=== PATIENT | female | born 1960 | race Hispanic/Latino ===

== ENCOUNTER 2020-12-28 10:14 | Outpatient (CLI) | payer OTHER | END 2020-12-28 10:15 | disposition home or self-care (01) | LOC: SPVWC 10:14 | PROVIDERS: ATTEND Family Medicine | DX: N63.12 Unspecified lump in the right breast, upper inner quadrant (principal); D05.11 Intraductal carcinoma in situ of right breast; R92.1 Mammographic calcification found on diagnostic imaging of breast; R92.8 Other abnormal and inconclusive findings on diagnostic imaging of breast; N64.89 Other specified disorders of breast; Z17.0 Estrogen receptor positive status [ER+] | CPT/HCPCS: 88305; 88341; 88342 ==

== ENCOUNTER 2021-02-09 10:24 | Day surgery (SDC) | payer OTHER ==
[2021-02-04 10:15] LABS: Hemoglobin 15.1 gm/dl (10.1-14.3); Mean Corpuscular HGB Conc 34 % (30-34); Mean Corpuscular Volume 95 fl (79-97); Platelet Count 322 K/mm3 (140-440); Red Blood Count 4.63 M/mm3 (3.65-5.03)
[~2021-02-09 10:24] MED LIST: BUPIVACAINE/PF (0.5%) 5 MG/1 ML 30 ML VIAL INFILTRATI ONE; HEPARIN 10,000 UNITS/10 ML VIAL ONE; LIDOCAINE (1%) 10 MG/1 ML VIAL 20 ML MDV ONE; LIDOCAINE MPF (2%) 20 MG/1 ML VIAL 5 ML ONE; ONDANSETRON 4 MG/2 ML INJ ONE; SODIUM CHLORIDE 0.9% 250ML 250 ML ONE; SODIUM CHLORIDE 0.9% 500 ML 500 ML ONE; SODIUM CHLORIDE P/F VIAL 10 ML 10 ML ONE; ceFAZolin/STERILE WATER 2 GM/20 ML SYRINGE IV NR; dexAMETHasone 20 MG/5 ML VIAL ONE; ePHEDrine SULFATE 50 MG/1 ML INJ ONE; fentaNYL 100 MCG/2 ML INJ ONE; propofoL 200 MG/20 ML VIAL IV ONE; rifAMPin 600 MG VIAL ONE
[2021-02-09] MEDS ORDERED: LIDOCAINE (1%) 10 MG/1 ML VIAL 20 ML MDV ONE (11:04)
--- NOTE | 2021-02-09 11:35 | Mammography Report ---
MAMMOGRAPHIC GUIDED RIGHT BREAST NEEDLE LOCALIZATION, 02/09/2021 CLINICAL INFORMATION / INDICATION: Right breast calcification/mass. COMPARISON: 12/28/2020 PROCEDURE: Risks, benefits and indications to the procedure were discussed with the patient. The patient agreed to proceed with both verbal and written consent. A timeout procedure was performed with 2 patient kaylin ntifiers. The breast was prepped with betadine in the usual sterile fashion. Approximately 5 cc of Lidocaine 1% was used for local anesthesia. Under direct digital mammographic guidance, a localization wire was p laced in satisfactory position with distal tip traversing the targeted lesion. Post-biopsy mammogram confirms satisfactory positioning of the localization wire. The wire was secured to the skin with a s terile dressing. The patient tolerated procedure without difficulty. No complications were encountered. IMPRESSION: 1. Satisfactory mammographic guided wire localization of the pleomorphic calcifications in the right breast. Signer Name: Jorge L Palomo Jr, MD Signed: 02/09/2021 11:31 AM Workstation Name: [id number]
[2021-02-09] MEDS ORDERED: MIDAZOLAM 2 MG/2 ML INJ IV NR (11:42)
[2021-02-09] MEDS ORDERED: LACTATED RINGERS 1,000 ML IV SCH (11:45)
--- NOTE | 2021-02-09 11:57 | Anesthesia Consultation ---
Anesthesia Consult and Med Hx Date of service: 02/09/21 - Airway Anesthetic Teeth Evaluation: Good, Caps (upper front) ROM Head & Neck: Adequate Mental/Hyoid Distance: Adequate Mallampati Class: Class II Intubation Access Assessment: Probably Good - Pre-Operative Health Status ASA Pre-Surgery Classification: ASA2 Proposed Anesthetic Plan: General Nerve Block: PEC - Pulmonary Hx Smoking: No Hx Sleep Apnea: No - Cardiovascular System Hx Hypertension: Yes (recent, no meds) - Central Nervous System Hx Psychiatric Problems: No - Gastrointestinal Hx Gastroesophageal Reflux Disease: No (PONV) - Other Systems Hx Alcohol Use: Yes (OCCASIONALLY) Hx Substance Use: No Hx Cancer: Yes (right breast mass)
--- NOTE | 2021-02-09 11:58 | Anesthesia Day of Surgery ---
Anesthesia Day of Surgery - Day of Surgery Patient Examined: Yes Patient H&P Reviewed: Yes Patient is NPO: Yes
[2021-02-09] MEDS ORDERED: SCOPOLAMINE TRANSDERMAL PATCH 72 HR TD NR (12:00)
[2021-02-09] MEDS ORDERED: FAMOTIDINE 20 MG/2 ML INJ IV NR (12:00)
--- NOTE | 2021-02-09 14:57 | Short Stay Summary ---
Short Stay Documentation Date of service: 02/09/21 - History H&P: obtained from office - Allergies and Medications Current Medications: Allergies No Known Allergies Allergy (Verified 02/02/21 15:50) Home Medications Medication Instructions Recorded Confirmed Last Taken Type Ibuprofen [Motrin 800 MG tab] 800 mg PO Q8HR PRN #12 tablet 02/09/21 Unknown Rx Active Medications Cefazolin Sodium (Cefazolin/Sterile Water 2 Gm/20 Ml Syringe) 2 gm IV PREOP NR Stop: 02/09/21 21:00 Famotidine (Famotidine 20 Mg/2 Ml Inj) 20 mg IV PREOP NR Stop: 02/09/21 20:00 Last Admin: 02/09/21 12:15 Dose: 20 mg Documented by: Lactated Ringer's (Lactated Ringers) 1,000 mls @ 100 mls/hr IV DIRECT ELY Last Admin: 02/09/21 12:10 Dose: 100 mls/hr Documented by: Midazolam HCl (Midazolam 2 Mg/2 Ml Inj) 2 mg IV ONCE NR Stop: 02/09/21 20:00 Last Admin: 02/09/21 12:45 Dose: 2 mg Documented by: - Brief post op/procedure progress note Date of procedure: 02/09/21 Pre-op diagnosis: Right breast cancer upper inner quadrant Post-op diagnosis: same Procedure: Right needle localization partial mastectomy of the upper inner quadrant Anesthesia: GETA Findings: Wire and calcifications present on radiograph specimen Surgeon: ORLANDO PEARSON Estimated blood loss: minimal Pathology: list Specimen disposition: to lab Condition: stable - Disposition Condition at discharge: Good Disposition: DC-01 TO HOME OR SELFCARE Short Stay Discharge Plan Activity: other (no heavy lifting) Diet: regular Wound: keep clean and dry (wear breast binder; may shower in 48 hours; no baths, pools or lakes; apply bacitracin twice daily) Follow up with: ORLANDO PEARSON MD [Staff Physician] - 7 Days Prescriptions: Ibuprofen [Motrin 800 MG tab] 800 mg PO Q8HR PRN #12 tablet PRN Reason: Pain , Severe (7-10)
--- NOTE | 2021-02-09 15:00 | Mammography Report ---
RIGHT BREAST SPECIMEN RADIOGRAPH, 02/09/2021 INDICATION: Right breast calcifications/mass. COMPARISON: Needle localization performed earlier today FINDINGS: The previously localized target lesion is present in its entirety in the submitted specimen. The localization wire is present. IMPRESSION: 1. Radiographic evidence of satisfactory excision of the target lesion. Signer Name: Jorge L Palomo Jr, MD Signed: 02/09/2021 2:55 PM Workstation Name: [id number]
--- NOTE | 2021-02-09 15:04 | Operative Report ---
Operative Report Operative Report: Operative Report: February 09, 2021 Preoperative diagnosis: Right breast cancer of the upper inner quadrant Postoperative diagnosis: Same Procedure: Right needle localization partial mastectomy of the upper inner quadrant Surgeon: Janelle San MD Stitch Bonding Machine Tender Helper: Tristen Linares MD Anesthesia: General Findings: Right wire, calcifications and clip present within radiograph specimen Complications: None EBL: Minimal Disposition: PACU in good condition Indications for operative procedure: This is a 60 year old lady with newly diagnosed right breast cancer of the upper inner quadrant, Stage 0, [id number] ER/MO positive (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 Recommendations are to proceed with breast conservation. Radiology place wire at area of cancer. She understands the role of adjuvant radiation therapy. She wished to proceed with the above procedure. Procedure in detail: The patient was taken to radiology for wire placement for localization known area of cancer. Anesthesia placed right pectoral block. Patient was then taken to the operating room. Gen. anesthesia was administered. Right breast and axilla were prepped and draped in the normal sterile operative fashion. The wire was identified around 1:00 position 3-5 cm FN. Timeout was performed. Attention was then taken towards the right breast. Ultrasound used as well for identification of area of malignancy around 1:00 position 3-5 cm FN. A periareolar breast incision was made around 1:00 position with a 15 blade knife and dissection taken down to subcutaneous tissues. First began raising of the superior flap with removal of the wire from the skin with dissection taken superior to the wire and posteriorly down to the pectoralis muscle, followed by raising of the inferior flap, medial flap and lateral flap with all flaps taken down to the pectoralis muscle and past the wire to ensure adequate margins. The breast area of concern was appropriately removed posteriorly from the pectoralis muscle with the aid of the Bovie cautery. The wire was not encountered. Specimen was marked and then sent to pathology and radiology; radiograph specimen with wire, calcifications and clip present. Breast cavity was irrigated and hemostasis was obtained. The posterior deep breast tissues were approximated and closed using interrupted 3-0 Vicryl. The subcutaneous tissues were approximated and closed using interrupted 3-0 Vicryl followed by closing of the skin with a running 4-0 Monocryl and dermabond. The patient tolerated surgery very well and she was awaken from anesthesia without any complication and transported to PACU in good condition.
--- NOTE | 2021-02-09 15:21 | Post Anesthesia Evaluation ---
- Post Anesthesia Evaluation Patient Participated: Yes Airway Patent: Yes Stable Respiratory Function: Yes Nausea/Vomiting: No Temp > 96.8F: Yes Pain Manageable: Yes Adequeate Hydration: Yes Anesthesia Complications: No Block Receding Appropriately: Yes Patient on Ventilator: No
[2021-02-09 16:37] VITALS: BP 125/79
== END 2021-02-09 16:25 | disposition home or self-care (01) ==
LOC: OR 10:24
PROVIDERS: ATTEND Surgery
DX: C50.211 Malignant neoplasm of upper-inner quadrant of right female breast (principal); R92.1 Mammographic calcification found on diagnostic imaging of breast; I10 Essential (primary) hypertension; Z79.899 Other long term (current) drug therapy; Z98.890 Other specified postprocedural states; Z72.89 Other problems related to lifestyle; Z20.822 Contact with and (suspected) exposure to COVID-19
CPT/HCPCS: 19281; 19302; 36415; 64450; 76098; 85027; 88307; 88341; 88342; A4648; J0690; J1100; J1644; J2250; J2405; J2704; J3010; J3490; J7040; J7050; J7120; U0003

== ENCOUNTER 2021-03-01 08:36 | Outpatient (CLI) | payer OTHER ==
--- NOTE | 2021-03-01 10:36 | Magnetic Resonance Report ---
MRI BREAST BILATERAL WITH AND WITHOUT CONTRAST, 03/01/2021 CLINICAL INFORMATION / INDICATION: BREAST CA C50.211. Patient has history of right breast cancer stat us post lumpectomy on 02/09/2021. TECHNIQUE: Axial T1 and T2-weighted fat sat images were obtained precontrast. Gadolinium-based contra st was injected intravenously and serial axial T1 weighted images with fat saturation were obtained. 3-D MIP projections, kinetic analysis, and subtraction imaging were utilized to evaluate. A dedicated 8-channel breast coil was used for image acquisition. COMPARISON: Prior mammograms 12/15/2020, 12/21/2020, and 12/28/2020 FINDINGS: BREAST DENSITY: There are scattered areas of fibroglandular density. BACKGROUND ENHANCEMENT: Low level background enhancement within both breasts. RIGHT BREAST: There is postlumpectomy change seen in the central to upper inner quadrant of the right breast. A thin rim of enhancement is seen surrounding the lumpectomy cavity, with no obvious bulky s uspicious enhancement identified. LEFT BREAST: No dominant mass or suspicious area of enhancement in the left breast. AXILLAE: No pathologically enlarged axillary lymph nodes. ADDITIONAL FINDINGS: Limited imaging of the thorax and upper abdomen demonstrates no focal abnormalit y. IMPRESSION: 1. Post lumpectomy change in the right breast. Enhancement surrounding the lumpectomy site is favored to represent benign postsurgical change, though recommend breast MRI in 6 months to ensure resolutio n. 2. No suspicious MRI abnormality identified in the left breast. Follow up recommendation: Short term follow up in 6 months. BI-RADS Category 3: Probably Benign. Followup in 6 months. Signer Name: Johanne Ding MD Signed: 03/01/2021 10:32 AM Workstation Name: [id number]
== END 2021-03-01 08:37 | disposition home or self-care (01) ==
LOC: SPVIMAG 08:36
PROVIDERS: ATTEND Surgery
DX: C50.211 Malignant neoplasm of upper-inner quadrant of right female breast (principal)
CPT/HCPCS: A9575; C8908; 77049

== ENCOUNTER 2021-03-16 05:49 | Day surgery (SDC) | payer OTHER ==
[2021-03-11 09:59] LABS: Hematocrit 43.9 % (30.3-42.9); Mean Corpuscular HGB Conc 34 % (30-34); Mean Corpuscular Volume 96 fl (79-97); Platelet Count 238 K/mm3 (140-440); Red Blood Count 4.59 M/mm3 (3.65-5.03); Red Cell Distribution Width 13.3 % (13.2-15.2)
[2021-03-16] MEDS ORDERED: MIDAZOLAM 2 MG/2 ML INJ IV NR (06:00)
[2021-03-16] MEDS ORDERED: ACETAMINOPHEN 500 MG TAB PO SCH (06:00)
[2021-03-16] MEDS ORDERED: SCOPOLAMINE TRANSDERMAL PATCH 72 HR TD NR (06:00)
[2021-03-16] MEDS ORDERED: LACTATED RINGERS 1,000 ML IV SCH (06:00)
[2021-03-16] MEDS ORDERED: ceFAZolin/STERILE WATER 2 GM/20 ML SYRINGE IV NR (06:00)
[2021-03-16] MEDS ORDERED: CELECOXIB 200 MG CAP PO NR (06:00)
[2021-03-16] MEDS ORDERED: GABAPENTIN 300 MG CAP PO NR (06:00)
[2021-03-16] MEDS ORDERED: ONDANSETRON 4 MG/2 ML INJ ONE (07:23)
[2021-03-16] MEDS ORDERED: propofoL 200 MG/20 ML VIAL IV ONE (07:23)
[2021-03-16] MEDS ORDERED: fentaNYL 100 MCG/2 ML INJ ONE ×2 (07:23→09:34)
[2021-03-16] MEDS ORDERED: KETOROLAC 30 MG/1 ML INJ ONE (07:23)
[2021-03-16] MEDS ORDERED: dexAMETHasone 20 MG/5 ML VIAL ONE (07:23)
[2021-03-16] MEDS ORDERED: LIDOCAINE PF 100 MG/5 ML (CARDIAC SYRINGE) IV ONE (07:23)
--- NOTE | 2021-03-16 07:25 | Anesthesia Consultation ---
Anesthesia Consult and Med Hx Date of service: 03/16/21 - Airway Anesthetic Teeth Evaluation: Good, Crowns (top incisors) ROM Head & Neck: Adequate Mental/Hyoid Distance: Adequate Mallampati Class: Class II Intubation Access Assessment: Probably Good (previous LMA 4) - Pre-Operative Health Status ASA Pre-Surgery Classification: ASA2 Proposed Anesthetic Plan: General - Pulmonary Hx Smoking: No Hx Respiratory Symptoms: No - Cardiovascular System Hx Hypertension: Yes (recent dx; no meds) Hx Heart Attack/AMI: No - Central Nervous System CVA: No - Endocrine Hx Renal Disease: No Hx Liver Disease: No Hx Insulin Dependent Diabetes: No Hx Non-Insulin Dependent Diabetes: No Hx Thyroid Disease: No - Other Systems Hx Cancer: Yes (breast ca) - Additional Comments Anesthesia Medical History Comments: Hx PONV for which scop patch was helpful with last anesthetic.
[2021-03-16] MEDS ORDERED: HYDROcodone/ACETAMINOPHEN 5-325 MG TAB PO PRN (07:26)
[2021-03-16] MEDS ORDERED: HYDROmorphone 1 MG/1 ML INJ IV PRN (07:26)
[2021-03-16] MEDS ORDERED: ONDANSETRON 4 MG/2 ML INJ IV PRN (07:26)
--- NOTE | 2021-03-16 07:26 | Anesthesia Day of Surgery ---
Anesthesia Day of Surgery - Day of Surgery Patient Examined: Yes Patient H&P Reviewed: Yes Patient is NPO: Yes
[2021-03-16] MEDS ORDERED: BACITRACIN ZINC OINT 28.4 GM TP ONE (07:39)
[2021-03-16] MEDS ORDERED: BUPIVACAINE/PF (0.25%) 2.5 MG/ML 30 ML VIAL INFILTRATI ONE (07:39)
[2021-03-16] MEDS ORDERED: LIDOCAINE (1%) 10 MG/1 ML VIAL 20 ML MDV ONE (07:39)
[2021-03-16] MEDS ORDERED: SODIUM CHLORIDE P/F VIAL 10 ML 10 ML ONE (08:12)
[2021-03-16] MEDS ORDERED: METHYLENE BLUE 50 MG/10 ML AMP ONE (08:12)
[2021-03-16] MEDS ORDERED: ePHEDrine SULFATE 50 MG/1 ML INJ ONE (08:31)
[2021-03-16] MEDS ORDERED: LACTATED RINGERS 1,000 ML ONE (09:27)
--- NOTE | 2021-03-16 09:57 | Short Stay Summary ---
Short Stay Documentation Date of service: 03/16/21 - History H&P: obtained from office - Allergies and Medications Current Medications: Allergies No Known Allergies Allergy (Verified 02/22/21 10:11) Home Medications Medication Instructions Recorded Confirmed Last Taken Type Ibuprofen [Motrin 800 MG tab] 800 mg PO Q8HR PRN #10 tablet 03/16/21 Unknown Rx Active Medications Acetaminophen (Acetaminophen 500 Mg Tab) 1,000 mg PO PREOP ELY Last Admin: 03/16/21 06:45 Dose: 1,000 mg Documented by: Hydrocodone Bitart/Acetaminophen (Hydrocodone/Acetaminophen 5-325 Mg Tab) 2 each PO ONCE PRN PRN Reason: Pain, Moderate (4-6) Stop: 03/16/21 12:00 Cefazolin Sodium (Cefazolin/Sterile Water 2 Gm/20 Ml Syringe) 2 gm IV PREOP NR Stop: 03/16/21 19:00 Celecoxib (Celecoxib 200 Mg Cap) 200 mg PO PREOP NR Stop: 03/16/21 23:01 Last Admin: 03/16/21 06:45 Dose: 200 mg Documented by: Gabapentin (Gabapentin 300 Mg Cap) 300 mg PO PREOP NR Stop: 03/16/21 23:01 Last Admin: 03/16/21 06:45 Dose: 300 mg Documented by: Hydromorphone HCl (Hydromorphone 1 Mg/1 Ml Inj) 0.5 mg IV Q10MIN PRN PRN Reason: Pain , Severe (7-10) Stop: 03/16/21 23:00 Lactated Ringer's (Lactated Ringers) 1,000 mls @ 100 mls/hr IV DIRECT ELY Stop: 03/16/21 23:59 Last Admin: 03/16/21 06:50 Dose: 100 mls/hr Documented by: Midazolam HCl (Midazolam 2 Mg/2 Ml Inj) 2 mg IV PREOP NR Stop: 03/16/21 23:00 Ondansetron HCl (Ondansetron 4 Mg/2 Ml Inj) 4 mg IV ONCE PRN PRN Reason: Nausea And Vomiting Stop: 03/16/21 12:00 Scopolamine (Scopolamine Transdermal Patch 72 Hr) 1 each TD PREOP NR Stop: 03/16/21 23:01 Last Admin: 03/16/21 06:45 Dose: 1 each Documented by: - Brief post op/procedure progress note Date of procedure: 03/16/21 Pre-op diagnosis: Right breast cancer upper inner quadrant Post-op diagnosis: same Procedure: Right axillary sentinel lymph node biopsy Anesthesia: GETA Findings: x2 SLNS Surgeon: ORLANDO PEARSON Estimated blood loss: minimal Pathology: list Specimen disposition: to lab Condition: stable - Disposition Condition at discharge: Good Disposition: 01 HOME / SELF CARE / HOMELESS Short Stay Discharge Plan Activity: other (no heavy lifting) Diet: regular Wound: keep clean and dry (wear breast binder; may shower in 48 hours; no baths, pools or lakes) Follow up with: ORLANDO PEARSON MD [Staff Physician] - 7 Days Prescriptions: Ibuprofen [Motrin 800 MG tab] 800 mg PO Q8HR PRN #10 tablet PRN Reason: Pain , Severe (7-10)
--- NOTE | 2021-03-16 10:00 | Operative Report ---
Operative Report Operative Report: Operative Report: March 16, 2021 Preoperative diagnosis: Right breast cancer of the upper inner quadrant Postoperative diagnosis: Same Procedure: Right axillary sentinel lymph node biopsy Surgeon: Janelle San MD Language Translator: Tristen Linares MD Anesthesia: General Findings: x2 SLNs Complications: None EBL: Minimal Disposition: PACU in good condition Indications for operative procedure: This is a 60 year old lady with newly diagnosed right breast cancer of the upper inner quadrant, Stage IA [id number] ER positive (1:00 position). 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 Recommendations are to proceed with SLN given invasive breast cancer. Recent breast MRI with no suspicious findings. She understands the role of adjuvant radiation therapy and Oncotype DX will be obtained by medical oncology. She wished to proceed with the above procedure. Procedure in detail: Patient was then taken to the operating room. Gen. anesthesia was administered. The right nipple was injected with radioisotope and 1 cc of methylene blue dye. Right breast and axilla were prepped and draped in the normal sterile operative fashion. The prior 1:00 position periareolar incision was noted. Timeout was performed. Gamma probe was inserted into the axilla. The area of hot spot was identified. A right axillary incision was made with a 15 blade knife with dissection taken down to the subcutaneous tissues. The axillary fascia was opened with the Bovie cautery. 2 SLNs were identified and dissected free. All remaining counts were less than 10% of the highest count. Lymph nodes were sent to pathology for permanent processing. Hemostasis was obtained in the right axillary cavity. Axillary cavity was appropriately irrigated and suctioned. Hemostasis was noted. Axillary fascia was approximated and closed using interrupted 3-0 Vicryl and the skin brought together and closed using a running 4-0 Monocryl followed by skin affix. The patient tolerated surgery very well and she was awaken from anesthesia without any complication and transported to PACU in good condition.
[2021-03-16] MEDS ORDERED: SODIUM CHLORIDE 0.9% IRR 1,500 ML BOTTLE IR ONE (10:28)
[2021-03-16 11:13] VITALS: BP 124/69
--- NOTE | 2021-03-16 13:51 | Post Anesthesia Evaluation ---
- Post Anesthesia Evaluation Patient Participated: Yes Airway Patent: Yes Stable Respiratory Function: Yes Nausea/Vomiting: No Temp > 96.8F: Yes Pain Manageable: Yes Adequeate Hydration: Yes Anesthesia Complications: No
--- NOTE | 2021-03-18 21:06 | Anesthesia Day of Surgery ---
Anesthesia Day of Surgery - Day of Surgery Patient Examined: Yes Patient H&P Reviewed: Yes Patient is NPO: No (Full stomach) Beta Blockers: No Cardiac Clearance: No Pulmonary Clearance: No Jonah's Test: N/A
== END 2021-03-16 10:52 | disposition home or self-care (01) ==
LOC: OR 05:49
DX: C50.211 Malignant neoplasm of upper-inner quadrant of right female breast (principal); I10 Essential (primary) hypertension; M19.90 Unspecified osteoarthritis, unspecified site; Z79.899 Other long term (current) drug therapy; Z98.890 Other specified postprocedural states; Z20.822 Contact with and (suspected) exposure to COVID-19
CPT/HCPCS: 36415; 38500; 78800; 85027; 88307; 88342; A9541; J0690; J1100; J2001; J2405; J2704; J3010; J7120; Q9968; U0003; 88333; J1885

== ENCOUNTER 2021-03-18 19:56 | Observation (INO) | payer OTHER ==
[2021-03-18] MEDS ORDERED: VANCOMYCIN/NS 1 GM/250 ML 1 GM/250 ML BAG IV ONE (20:27)
--- NOTE | 2021-03-18 20:38 | Emergency Department Report ---
HPI - General Time Seen by Provider: 03/18/21 20:17 - HPI HPI: This is a 60-year-old female presents to the emergency department with complaint of pain and swelling to the right axilla over the past 2 days. Patient had a sentinel lymph node biopsy of the right axilla done 2 days ago, with her breast surgeon Dr. San. The patient has recently diagnosed stage I breast canc er. Patient was seen in the emergency department by Dr. San, who also chaperoned me during my examination, and the patient appears to have some mild erythema and swelling in the area of the lymph node biopsy. No fever. Dr. San plans to take the patient to the OR this evening for surgical evaluation and possible evacuation of a suspected hematoma. ED Past Medical Hx - Past Medical History Hx Hypertension: Yes (recent dx; no meds) Hx Heart Attack/AMI: No Hx Liver Disease: No Hx Renal Disease: No Hx Arthritis: Yes (RIGHT ANKLE) - Surgical History Hx Breast Surgery: Yes (RIGHT BREAST) - Social History Smoking Status: Never Smoker - Medications Home Medications: Home Medications Medication Instructions Recorded Confirmed Last Taken Type Ibuprofen [Motrin 800 MG tab] 800 mg PO Q8HR PRN #10 tablet 03/16/21 Unknown Rx ED Review of Systems ROS: Stated complaint: LYMPHNODE COMPLICATIONS Other details as noted in HPI Comment: All other systems reviewed and negative Constitutional: denies: chills, fever Respiratory: denies: cough, shortness of breath Gastrointestinal: denies: abdominal pain, vomiting Musculoskeletal: other (Right axillary pain and swelling) Skin: change in color, other (Right axillary swelling) Neurological: denies: numbness, paresthesias Physical Exam - Physical Exam Physical Exam: GENERAL: The patient is well-developed well-nourished. HENT: Normocephalic. Atraumatic. Patient has moist mucous membranes. EYES: Extraocular motions are intact. NECK: Supple. Trachea is midline. CHEST/LUNGS: Clear to auscultation. There is no respiratory distress noted. HEART/CARDIOVASCULAR: Regular. There is no tachycardia. ABDOMEN: Abdomen is soft, nontender. Patient has normal bowel sounds. SKIN: Skin is warm and dry. There is about a 3 inch linear incision to the right axilla that appears intact. However there is moderate swelling, erythema, and some fluctuance. NEURO: The patient is awake, alert, and oriented. The patient is cooperative.Normal speech. MUSCULOSKELETAL: Tenderness to palpation to the right axilla where the patient has erythema and swelling at her incision site. ED Medical Decision Making - Lab Data Result diagrams: 03/18/21 22:12 - Medical Decision Making This patient had a sentinel lymph node biopsy done 2 days ago for stage I breast cancer. She now presents with some pain and swelling to the incision site. On examination there also appears to be some erythema. The patient was seen at bedside by her breast surgeon who has decided to take her to the OR. Initially it appeared consistent with a hematoma, but in reviewing the operative report it appears that the patient had developed an abscess, which was drained. Vital signs reassuring in the emergency department including being afebrile. The patient was admitted to Dr. San. Critical Care Time: No Critical care attestation.: If time is entered above; I have spent that time in minutes in the direct care of this critically ill patient, excluding procedure time. ED Disposition Clinical Impression: Pain in right axilla, Right axillary swelling, Post-op pain, Axillary abscess Disposition: 02 SHORT TERM HOSPITAL Is pt being admited?: Yes Condition: Fair Time of Disposition: 20:38
--- NOTE | 2021-03-18 20:41 | History and Physical Report ---
History of Present Illness Date of examination: 03/18/21 Date of admission: 03/18/2021 Chief complaint: Right axillary swelling and pain History of present illness: This is a 60 year old lady with Stage IA right breast cancer upper inner quadrant, presenting today for right axillay swelling. Patient is POD#2 right axillary SLNB on 03/16/2021 (prior right partial mastectomy for intermediated grade DCIS and final pathology findings of ILCA and recommendations to proceed with axillary SLNB given invasive cancer). Patient reports she initially noticed mild swelling on evening that increased this morning. She reports pain at right axilla. Past History Past Medical History: other (Stage IA right breast cancer UIQ) Past Surgical History: Other (Right partial mastectomy and right SLNB) Social history: no significant social history Family history: no significant family history Medications and Allergies Allergies Allergy/AdvReac Type Severity Reaction Status Date / Time No Known Allergies Allergy Verified 02/22/21 10:11 Home Medications Medication Instructions Recorded Confirmed Last Taken Type Ibuprofen [Motrin 800 MG tab] 800 mg PO Q8HR PRN #10 tablet 03/16/21 Unknown Rx Active Meds: Active Medications Vancomycin HCl (Vancomycin/Ns 1 Gm/250 Ml) 1 gm in 250 mls @ 167.007 mls/hr IV ONCE ONE; Protocol Stop: 03/18/21 21:56 Review of Systems All systems: negative - Breasts swelling (right axillary swelling), other Exam - General physical appearance Positive: well developed, well nourished - Eyes Positive: PERRL, normal occular movement - ENT Positive: normal pinna, normal nares, normal mucosa, no hearing loss, no congestion - Neck Positive: no masses, no bruits, trachea midline - Respiratory Positive: normal expansion - Cardiovascular Rhythm: regular - Extremities Extremities: no ischemia, pulses intact, pulses symmetrical, No edema, normal temperature, normal color, Full ROM Peripheral Pulses: within normal limits - Breasts Breasts: other (right axillary swelling appears superficial with associated cellulitis and tenderness, soft and not expanding; periareolar incision well healed) - Abdomen Abdomen: Present: soft - Genitourinary Female Genitourinary: deferred - Integumentary no rash, no growths, no abnormal pigmentation - Neurologic Neurologic: alert and oriented to time, place and person, motor strength and sensation are grossly intact, CN II-XII intact - Musculoskeletal normal gait Assessment and Plan This is a 60 year old lady with Stage IA right breast cancer upper inner quadrant, presenting today for right axillay swelling. Patient is POD#2 right axillary SLNB on 03/16/2021 (prior right partial mastectomy for intermediated grade DCIS and final pathology findings of ILCA and recommendations to proceed with axillary SLNB given invasive cancer). Patient reported she initially noticed mild swelling on evening that increased this morning. Physical exam of right axillary swelling with associated cellulitis and tenderness. Ultrasound performed with no definitive fluid collection well seen and area of swelling may represent a hematoma. Given discomfort, recommend evaucation of probable hematoma under general anesthesia. Will start IV Vancomycin. Patient consented for right axillary possible hematoma evacuation with risk, benefits and indications explained in detail to include but not limited to infection, pain, bleeding, seroma, hematoma, necrosis, nerve injury and possible additional surgery.
[2021-03-18] MEDS ORDERED: VANCOMYCIN/NS 1 GM/250 ML 1 GM/250 ML BAG IV NR (21:00)
[2021-03-18] MEDS ORDERED: ONDANSETRON 4 MG/2 ML INJ ONE (21:13)
[2021-03-18] MEDS ORDERED: LIDOCAINE MPF (2%) 20 MG/1 ML VIAL 5 ML ONE (21:13)
[2021-03-18] MEDS ORDERED: propofoL 200 MG/20 ML VIAL IV ONE (21:13)
[2021-03-18] MEDS ORDERED: HYDROmorphone 1 MG/1 ML INJ ONE (21:13)
[2021-03-18] MEDS ORDERED: ROCURONIUM 50 MG/5 ML INJ IV ONE (21:14)
[2021-03-18] MEDS ORDERED: SUCCINYLCHOLINE CHLORIDE 200 MG/10 ML INJ MDV ONE (21:14)
[2021-03-18] MEDS ORDERED: METOCLOPRAMIDE 10 MG/2 ML INJ ONE (21:14)
[2021-03-18] MEDS ORDERED: LIDOCAINE (1%) 10 MG/1 ML VIAL 20 ML MDV ONE (21:24)
[2021-03-18] MEDS ORDERED: BUPIVACAINE/PF (0.25%) 2.5 MG/ML 30 ML VIAL INFILTRATI ONE ×2 (21:25→22:49)
[2021-03-18] MEDS ORDERED: NEOMY 40 MG/POLYMYXIN B 200,000 UNITS/ML (GU) AMPULE IR ONE ×2 (22:02→22:48)
[2021-03-18 22:23] LABS: Basophils # (Auto) 0.1 K/mm3 (0.0-0.1); Basophils % (Auto) 0.6 % (0.0-1.8); Eosinophils # (Auto) 0.1 K/mm3 (0.0-0.4); Eosinophils % (Auto) 1.4 % (0.0-4.3); Hematocrit 37.4 % (30.3-42.9); Hemoglobin 12.7 gm/dl (10.1-14.3); Lymphocytes # (Auto) 1.2 K/mm3 (1.2-5.4); Lymphocytes % (Auto) 14.7 % (13.4-35.0); Mean Corpuscular HGB Conc 34 % (30-34); Mean Corpuscular Volume 97 fl (79-97); Monocytes # (Auto) 0.8 K/mm3 (0.0-0.8); Monocytes % (Auto) 9.9 % (0.0-7.3); Platelet Count 200 K/mm3 (140-440); Red Blood Count 3.86 M/mm3 (3.65-5.03)
[2021-03-18] MEDS ORDERED: WATER FOR IRRIG STERILE 1,500 ML BOTTLE IR ONE (22:48)
[2021-03-18] MEDS ORDERED: LIDOCAINE (1%) 10 MG/1 ML VIAL 20 ML MDV INFILTRATI ONE (22:49)
[2021-03-18] MEDS ORDERED: PHENYLEPHRINE/NS 1,000 MCG/10 ML SYRINGE (OR USE) IV ONE (22:56)
[2021-03-18] MEDS ORDERED: BACITRACIN ZINC OINT 28.4 GM TP ONE (22:58)
[2021-03-18] MEDS ORDERED: METOCLOPRAMIDE 10 MG TAB PO PRN (22:59)
[2021-03-18] MEDS ORDERED: ONDANSETRON 4 MG/2 ML INJ IV PRN (22:59)
[2021-03-18] MEDS ORDERED: diphenhydrAMINE 25 MG CAP PO PRN (22:59)
[2021-03-18] MEDS ORDERED: oxyCODONE /ACETAMINOPHEN 5-325MG TAB PO PRN (22:59)
[2021-03-18] MEDS ORDERED: ACETAMINOPHEN 325 MG TAB PO PRN (22:59)
[2021-03-18] MEDS ORDERED: LACTATED RINGERS 1,000 ML IV SCH (23:00)
[2021-03-18] MEDS ORDERED: MORPHINE 2 MG/1 ML INJ IV PRN (23:01)
--- NOTE | 2021-03-18 23:06 | Short Stay Summary ---
Short Stay Documentation Date of service: 03/18/21 - History H&P: obtained from office Past Medical History: other (Stage IA right breast cancer UIQ) Past Surgical History: Other (Right partial mastectomy and right SLNB) Social history: no significant social history - Allergies and Medications Current Medications: Allergies No Known Allergies Allergy (Verified 02/22/21 10:11) Home Medications Medication Instructions Recorded Confirmed Last Taken Type Ibuprofen [Motrin 800 MG tab] 800 mg PO Q8HR PRN #10 tablet 03/16/21 Unknown Rx Active Medications Acetaminophen (Acetaminophen 325 Mg Tab) 650 mg PO Q6H PRN PRN Reason: Pain MILD(1-3)/Fever >100.5/DIANA Diphenhydramine HCl (Diphenhydramine 25 Mg Cap) 25 mg PO Q8H PRN PRN Reason: Itching Docusate Sodium (Docusate Sodium 100 Mg Cap) 100 mg PO BID ELY Hydromorphone HCl (Hydromorphone 2 Mg Tab) 2 mg PO Q6H PRN PRN Reason: Pain , Severe (7-10) Lactated Ringer's (Lactated Ringers) 1,000 mls @ 125 mls/hr IV DIRECT ELY Metoclopramide HCl (Metoclopramide 10 Mg Tab) 10 mg PO Q6H PRN PRN Reason: Nausea And Vomiting Ondansetron HCl (Ondansetron 4 Mg/2 Ml Inj) 4 mg IV Q8H PRN PRN Reason: N/V unrelieved by Reglan - Physical exam Breasts: other (right axillary swelling appears superficial with associated cellulitis and tenderness, soft and not expanding; periareolar incision well healed) Extremities: no ischemia, pulses intact, pulses symmetrical, No edema, normal temperature, normal color, Full ROM - Brief post op/procedure progress note Date of procedure: 03/18/21 Pre-op diagnosis: Right axillary hematoma Post-op diagnosis: other (Right axillary abscess) Procedure: Right axillary abscess incision and drainage Anesthesia: GETA Findings: Right axillary abscess with 50 cc of pus aspirated/drained Surgeon: ORLANDO PEARSON Estimated blood loss: minimal Pathology: list Specimen disposition: to lab Condition: stable - Disposition Condition at discharge: Good Disposition: 02 SHORT TERM [facility] Short Stay Discharge Plan Activity: other (no heavy lifting) Diet: regular Wound: keep clean and dry Follow up with: ORLANDO PEARSON MD [Staff Physician] - 7 Days
--- NOTE | 2021-03-18 23:16 | Operative Report ---
Operative Report Operative Report: Operative Report: March 18, 2021 Preoperative diagnosis: Right axillary hematoma Postoperative diagnosis: Right axillary abscess Procedure: Right axillary abscess incision and drainage Surgeon: Janelle San MD Anesthesia: General Findings: Right axillary abscess with 30-50 cc of pus drained Complications: None EBL: Minimal Drain: 15 Maltese KRYSTIN drain Disposition: PACU in good condition Indications for operative procedure: This is a 60 year old lady with newly d iagnosed right breast cancer of the upper inner quadrant, Stage IA [id number] ER positive (1:00 position). 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 Recommendations were to proceed with SLN given invasive breast cancer. March 18, 2002 patient underwent a right axillary sentinel lymph node biopsy. She presented to the ER today for complaints of right axillary swelling. Physical exam findings of cellulitic changes with erythema, warmth and some swelling noted at the incision. Ultrasound performed showed no definitive fluid collection well seen but given tenderness, recommendations were to proceed with probable right axillary hematoma evaucation. She wished to proceed with the drug procedure. Procedure in detail: Patient was then taken to the operating room. Gen. anesthesia was administered. The right breast and axilla were prepped and draped in the normal sterile operative fashion. The prior axillary incision was noted. Timeout was performed. A right axillary incision was made with a 15 blade knife through incision with dissection taken down to the subcutaneous tissues. Upon opening of the subcutaneous tissues significant amount of pus was noted with at least 30 to 50 cc of pus drained. No findings of hematoma present and hemostasis noted. Cellulitis was due to abscess within the axilla. I suspect abscess was due to allergic reaction to Surgicel powder (new hemostatic agent used during most recent surgery). The axilla was examined further and then irrigated with antibiotic solution. No additional area of pockets of abscess were noted. The 15 Maltese drain was placed. Hemostasis was noted in the right axillary cavity. Axillary fascia was approximated and closed using interrupted 3-0 Vicryl and the skin brought together and closed using a running 4-0 Monocryl followed by skin affix. The patient tolerated surgery very well and she was awaken from anesthesia without any complication and transported to PACU in good condition.
--- NOTE | 2021-03-18 23:22 | Post Anesthesia Evaluation ---
- Post Anesthesia Evaluation Patient Participated: Yes Airway Patent: Yes Stable Respiratory Function: Yes Nausea/Vomiting: No Temp > 96.8F: Yes Pain Manageable: Yes Adequeate Hydration: Yes Anesthesia Complications: No Block Receding Appropriately: Not Applicable Patient on Ventilator: No
[2021-03-19] MEDS ORDERED: BACITRACIN ZINC OINT 28.4 GM TP PRN (08:28)
[2021-03-19] MEDS ORDERED: VANCOMYCIN/NS 1 GM/250 ML 1 GM/250 ML BAG IV ONE (08:37)
[2021-03-19] MEDS: HYDROmorphone 2 MG TAB PO PRN ×2 (08:51→21:11)
[2021-03-19] MEDS: DOCUSATE SODIUM 100 MG CAP PO SCH ×2 (09:52→21:11)
--- NOTE | 2021-03-19 10:50 | Progress Note ---
Assessment and Plan This is a 60 year old lady with Stage IA right breast cancer upper inner quadrant, seen in the ER on 03/18/2021 for right axillay swelling. Patient is POD#3 right axillary SLNB on 03/16/2021 (prior right partial mastectomy for intermediated grade DCIS and final pathology findings of ILCA and recommendations to proceed with axillary SLNB given invasive cancer). She was then taken to surgery on 03/18/2021 for right axillary abscess incision and drainage with pus present anterior to the axillary fascia. 1. No acute events overnight. 2. Afebrile, normal WBC at admission. 3. Right axilla with persistent erythema, no palpable fluid collection. Will continue with Vancomycin and add Flagyl. Discussed as well if exam not improved tomorrow, will open skin at bedside. Warm compressions today as well. 4. Will obtain CBC this morning. 5. OOB to hallway. 6. SCDs on and will add lovenox today. Subjective Date of service: 03/19/21 Principal diagnosis: Right axillary abscess Interval history: POD#1 right axillary abscess incision and drainage Objective - Constitutional Vitals: Vital Signs - 12hr 03/18/21 03/18/21 03/18/21 23:04 23:09 23:14 Temperature 98.7 F Pulse Rate 90 94 H 93 H Respiratory 16 17 18 Rate Blood Pressure 124/56 114/55 115/56 O2 Sat by Pulse 100 99 99 Oximetry 03/18/21 03/18/21 03/19/21 23:30 23:45 00:07 Temperature 98.8 F 98.8 F Pulse Rate 82 95 H 89 Respiratory 18 18 20 Rate Blood Pressure 120/66 104/64 104/64 O2 Sat by Pulse 99 98 95 Oximetry 03/19/21 03/19/21 03/19/21 00:30 07:20 08:25 Temperature 97.9 F Pulse Rate 73 Respiratory 20 18 Rate Blood Pressure 94/54 O2 Sat by Pulse 98 97 100 Oximetry General appearance: Present: no acute distress - EENT Eyes: PERRL ENT: clear oral mucosa, dentition normal Ears: bilateral: normal - Neck Neck: supple, normal ROM - Respiratory Respiratory effort: normal - Breasts Breasts: other (right axilla with erythema at incision; no palpable fluid collection; KRYSTIN drain to bulb suction) - Cardiovascular Rhythm: regular Extremities: no ischemia, pulses intact, pulses symmetrical, No edema, normal temperature, normal color, Full ROM - Gastrointestinal General gastrointestinal: Present: soft, non-tender, non-distended Rectal Exam: deferred - Genitourinary Female genitourinary: deferred - Integumentary Integumentary: clear, warm, dry - Musculoskeletal Musculoskeletal: strength equal bilaterally - Neurologic Neurologic: CNII-XII intact, moves all extremities, gait normal - Psychiatric Psychiatric: appropriate mood/affect, intact judgment & insight, memory intact, cooperative - Labs CBC & Chem 7: 03/18/21 22:12 Labs: Abnormal lab results 03/18/21 Range/Units 22:12 MCH 33 H (28-32) pg RDW 13.0 L (13.2-15.2) % [place] % (Auto) 9.9 H (0.0-7.3) % Seg Neutrophils % 73.4 H (40.0-70.0) % Medications & Allergies - Medications Allergies/Adverse Reactions: Allergies No Known Allergies Allergy (Verified 02/22/21 10:11) Home Medications: Home Medications Medication Instructions Recorded Confirmed Last Taken Type Ibuprofen [Motrin 800 MG tab] 800 mg PO Q8HR PRN #10 tablet 03/16/21 Unknown Rx Active Medications: Generic Name Dose Route Start Last Admin Trade Name Freq PRN Reason Stop Dose Admin Acetaminophen 650 mg 03/18/21 22:59 Acetaminophen 325 Mg Tab PO Q6H PRN Pain MILD(1-3)/Fever >100.5/DIANA Bacitracin 1 applic 03/19/21 08:28 03/19/21 09:52 Bacitracin Zinc Oint 28.4 Gm TP 1 applic PRN PRN Administration Wound Care Diphenhydramine HCl 25 mg 03/18/21 22:59 Diphenhydramine 25 Mg Cap PO Q8H PRN Itching Docusate Sodium 100 mg 03/19/21 10:00 03/19/21 09:52 Docusate Sodium 100 Mg Cap PO 100 mg BID ELY Administration Hydromorphone HCl 2 mg 03/18/21 22:59 03/19/21 08:51 Hydromorphone 2 Mg Tab PO 2 mg Q6H PRN Administration Pain , Severe (7-10) Lactated Ringer's 1,000 mls @ 125 mls/hr 03/18/21 23:00 Lactated Ringers IV DIRECT ELY Lidocaine HCl 1 applic 03/19/21 11:00 Lidocaine Jelly (2%) 5 Ml Topical TP 03/19/21 11:01 ONCE ONE Metoclopramide HCl 10 mg 03/18/21 22:59 Metoclopramide 10 Mg Tab PO Q6H PRN Nausea And Vomiting Metronidazole 500 mg 03/19/21 12:00 Metronidazole 500 Mg Tab PO Q8H ELY Protocol Morphine Sulfate 2 mg 03/18/21 23:01 Morphine 2 Mg/1 Ml Inj IV Q4H PRN Pain, Moderate (4-6) Ondansetron HCl 4 mg 03/18/21 22:59 Ondansetron 4 Mg/2 Ml Inj IV Q8H PRN N/V unrelieved by Ori Oxycodone/Acetaminophen 1 tab 03/18/21 22:59 Oxycodone /Acetaminophen 5-325mg Tab PO Q6H PRN Pain, Moderate (4-6) Sodium Chloride 10 ml 03/18/21 22:59 Sodium Chloride 0.9% 10 Ml Flush Syringe IV PRN PRN LINE FLUSH
[2021-03-19] MEDS ORDERED: VANCOMYCIN PHARMACY TO DOSE IV SCH (11:00)
[2021-03-19] MEDS ORDERED: LIDOCAINE JELLY (2%) 5 ML TOPICAL TP ONE (11:00)
[2021-03-19 11:42] LABS: Hematocrit 39.4 % (30.3-42.9); Hemoglobin 13.4 gm/dl (10.1-14.3); Mean Corpuscular HGB Conc 34 % (30-34); Mean Corpuscular Volume 97 fl (79-97); Platelet Count 218 K/mm3 (140-440); Red Blood Count 4.05 M/mm3 (3.65-5.03); Red Cell Distribution Width 12.9 % (13.2-15.2)
[2021-03-19] MEDS: metroNIDAZOLE 500 MG TAB PO SCH ×2 (13:00→21:11)
[2021-03-19 14:02] LABS: Band Neutrophils # (Manual) 0.1 K/mm3; Platelet Estimate Consistent w Auto; RBC Morphology Normal; Total Cells Counted 100
[2021-03-19] MEDS: VANCOMYCIN 1,250 MG in SODIUM CHLORIDE 0.9% 250ML 250 ML IV SCH (21:10)
[2021-03-19] MEDS ORDERED: ENOXAPARIN 40 MG/0.4 ML INJ SUB-Q SCH (22:00)
[2021-03-20] MEDS: metroNIDAZOLE 500 MG TAB PO SCH ×2 (05:24→11:48)
--- NOTE | 2021-03-20 09:09 | Discharge Summary ---
Providers - Providers Date of Admission: 03/18/21 22:59 Date of discharge: 03/20/21 Attending physician: ORLANDO PEARSON Primary care physician: TONO MACK Hospitalization Condition: Good Procedures: Right axillary abscess incision and drainage 03/18/2021 Hospital course: This is a 60 year old lady with Stage IA right breast cancer upper inner quadrant, seen in the ER on 03/18/2021 for right axillay swelling. Patient is POD#4 right axillary SLNB on 03/16/2021 (prior right partial mastectomy for intermediated grade DCIS and final pathology findings of ILCA and recommendations to proceed with axillary SLNB given invasive cancer). She was then taken to surgery on 03/18/2021 for right axillary abscess incision and drainage with pus present anterior to the axillary fascia. Drain was placed during surgery. She was started on antibiotics at admission and right axilla with significant decrease erythema at discharge. Disposition: 01 HOME / SELF CARE / HOMELESS Final Discharge Diagnosis (Prints w/discharge instructions): Right axillary abscess Core Measure Documentation - Palliative Care Palliative Care/ Comfort Measures: Not Applicable - Core Measures Any of the following diagnoses?: none - VTE Discharge Requirements Deep Vein Thrombosis/Pulmonary Embolism Present on Admission: No Has pt received <5 days of overlap therapy or INR<2.0: No Anticoagulant overlap therapy prescribed at discharge: No Contraindication No Overlap Therapy order at DC: Not Indicated - Acute [place] Discharge Requirements Aspirin at discharge: No Reason for no aspirin on DC: Surgical contraindication BOLIVAR/ARB for LVSD if EF <40%: Not Applicable - Heart Failure Discharge Requirements BOLIVAR/ARB for LVSD if EF <40%: Not Applicable - Stroke Discharge Requirements Statin for LDL = or >70 mg/dl on DC: Not Applicable Exam - Constitutional Vitals: Temp Pulse Resp BP Pulse Ox 98.2 F 72 18 94/56 97 03/20/21 03:15 03/20/21 03:15 03/20/21 03:15 03/20/21 03:15 03/20/21 03:15 General appearance: Present: no acute distress - EENT Eyes: Present: PERRL, EOM intact ENT: hearing intact, clear oral mucosa, dentition normal - Neck Neck: Present: supple, normal ROM - Respiratory Respiratory effort: normal - Cardiovascular Rhythm: regular - Extremities Extremities: no ischemia, pulses intact, pulses symmetrical Peripheral Pulses: within normal limits - Abdominal General gastrointestinal: Present: soft, non-tender, non-distended Female genitourinary: Present: deferred - Rectal Rectal Exam: deferred - Integumentary Integumentary: Present: clear, warm, dry - Musculoskeletal Musculoskeletal: strength equal bilaterally - Psychiatric Psychiatric: appropriate mood/affect, intact judgment & insight, memory intact, cooperative - Neurologic Neurologic: CNII-XII intact, moves all extremities, gait normal Plan Activity: other (no heavy lifting) Diet: regular Wound: keep clean and dry Follow up with: ORLANDO PEARSON MD [Staff Physician] - 03/21/21 Prescriptions: Sulfamethoxazole/Trimethoprim [Bactrim DS TAB] 1 each PO BID 7 Days #14 tablet Lidocaine [Lidocaine CREAM] 5 gm TP Q12HR PRN 7 Days #1 cream..g. PRN Reason: Pain , Severe (7-10) oxyCODONE /ACETAMINOPHEN [Percocet 5/325] 1 tab PO Q6HR PRN #15 tablet PRN Reason: Pain
--- NOTE | 2021-03-20 09:09 | Progress Note ---
Assessment and Plan This is a 60 year old lady with Stage IA right breast cancer upper inner quadrant, seen in the ER on 03/18/2021 for right axillay swelling. Patient is POD#4 right axillary SLNB on 03/16/2021 (prior right partial mastectomy for intermediated grade DCIS and final pathology findings of ILCA and recommendations to proceed with axillary SLNB given invasive cancer). She was then taken to surgery on 03/18/2021 for right axillary abscess incision and drainage with pus present anterior to the axillary fascia. 1. No acute events overnight. 2. Afebrile, normal WBC at admission and normal yesterday. 3. Right axilla with significant decrease erythema, no palpable fluid collection. Cultures from surgery pending. Patient to continue with warm co mpressions. Will d/c home with bactrim and make changes as indicated once cultures results are reported. 4. D/C planning for today. Subjective Date of service: 03/20/21 Principal diagnosis: Right axillary abscess Interval history: POD#2 right axillary abscess incision and drainage Objective - Constitutional Vitals: Vital Signs - 12hr 03/19/21 03/20/21 21:56 03:15 Temperature 98.6 F 98.2 F Pulse Rate 76 72 Respiratory 20 18 Rate Blood Pressure 114/67 94/56 O2 Sat by Pulse 96 97 Oximetry General appearance: Present: no acute distress - EENT Eyes: PERRL, EOM intact ENT: hearing intact, clear oral mucosa, dentition normal Ears: bilateral: normal - Neck Neck: supple, normal ROM - Respiratory Respiratory effort: normal Respiratory: bilateral: CTA - Breasts Breasts: other (right axillar incision clean, dry and intact; significant decrease erythema and mild edema; KRYSTIN drain to suction) - Cardiovascular Rhythm: regular Extremities: no ischemia, pulses intact, pulses symmetrical, No edema, normal temperature, normal color, Full ROM - Gastrointestinal General gastrointestinal: Present: soft, non-tender, non-distended Rectal Exam: deferred - Genitourinary Female genitourinary: deferred - Integumentary Integumentary: clear, warm, dry - Musculoskeletal Musculoskeletal: strength equal bilaterally - Neurologic Neurologic: CNII-XII intact, moves all extremities, gait normal - Psychiatric Psychiatric: appropriate mood/affect, intact judgment & insight, memory intact, cooperative - Labs CBC & Chem 7: 03/19/21 10:59 03/19/21 10:59 Labs: Abnormal lab results 03/19/21 Range/Units 10:59 MCH 33 H (28-32) pg RDW 12.9 L (13.2-15.2) % Seg Neuts % (Manual) 92.0 H (40.0-70.0) % Lymphocytes % (Manual) 5.0 L (13.4-35.0) % Seg Neutrophils # Man 8.4 H (1.8-7.7) K/mm3 Lymphocytes # (Manual) 0.5 L (1.2-5.4) K/mm3 Medications & Allergies - Medications Allergies/Adverse Reactions: Allergies No Known Allergies Allergy (Verified 02/22/21 10:11) Home Medications: Home Medications Medication Instructions Recorded Confirmed Last Taken Type Ibuprofen [Motrin 800 MG tab] 800 mg PO Q8HR PRN #10 tablet 03/16/21 03/19/21 03/18/21 Rx Lidocaine [Lidocaine CREAM] 5 gm TP Q12HR PRN 7 Days #1 03/20/21 Unknown Rx cream..g. Sulfamethoxazole/Trimethoprim 1 each PO BID 7 Days #14 tablet 03/20/21 Unknown Rx [Bactrim DS TAB] oxyCODONE /ACETAMINOPHEN [Percocet 1 tab PO Q6HR PRN #15 tablet 03/20/21 Unknown Rx 5/325] Active Medications: Generic Name Dose Route Start Last Admin Trade Name Freq PRN Reason Stop Dose Admin Acetaminophen 650 mg 03/18/21 22:59 Acetaminophen 325 Mg Tab PO Q6H PRN Pain MILD(1-3)/Fever >100.5/DIANA Bacitracin 1 applic 03/19/21 08:28 03/19/21 09:52 Bacitracin Zinc Oint 28.4 Gm TP 1 applic PRN PRN Administration Wound Care Diphenhydramine HCl 25 mg 03/18/21 22:59 Diphenhydramine 25 Mg Cap PO Q8H PRN Itching Docusate Sodium 100 mg 03/19/21 10:00 03/19/21 21:11 Docusate Sodium 100 Mg Cap PO 100 mg BID ELY Administration Enoxaparin Sodium 40 mg 03/19/21 22:00 03/19/21 21:10 Enoxaparin 40 Mg/0.4 Ml Inj SUB-Q 40 mg QDAY@2200 ELY Administration Protocol Hydromorphone HCl 2 mg 03/18/21 22:59 03/19/21 21:11 Hydromorphone 2 Mg Tab PO 2 mg Q6H PRN Administration Pain , Severe (7-10) Lactated Ringer's 1,000 mls @ 125 mls/hr 03/18/21 23:00 Lactated Ringers IV DIRECT ELY Vancomycin HCl 1,250 mg/ 275 mls @ 166.667 mls/hr 03/19/21 22:00 03/19/21 21:10 Sodium Chloride IV 166.667 mls/hr Q12HR ELY Administration Metoclopramide HCl 10 mg 03/18/21 22:59 Metoclopramide 10 Mg Tab PO Q6H PRN Nausea And Vomiting Metronidazole 500 mg 03/19/21 12:00 03/20/21 05:24 Metronidazole 500 Mg Tab PO 500 mg Q8H ELY Administration Protocol Morphine Sulfate 2 mg 03/18/21 23:01 Morphine 2 Mg/1 Ml Inj IV Q4H PRN Pain, Moderate (4-6) Ondansetron HCl 4 mg 03/18/21 22:59 Ondansetron 4 Mg/2 Ml Inj IV Q8H PRN N/V unrelieved by Ori Oxycodone/Acetaminophen 1 tab 03/18/21 22:59 Oxycodone /Acetaminophen 5-325mg Tab PO Q6H PRN Pain, Moderate (4-6) Sodium Chloride 10 ml 03/18/21 22:59 Sodium Chloride 0.9% 10 Ml Flush Syringe IV PRN PRN LINE FLUSH
[2021-03-20] MEDS: VANCOMYCIN 1,250 MG in SODIUM CHLORIDE 0.9% 250ML 250 ML IV SCH (09:36)
[2021-03-20] MEDS: DOCUSATE SODIUM 100 MG CAP PO SCH (09:38)
[2021-03-20 12:32] VITALS: BP 120/79
== END 2021-03-20 12:39 | disposition home or self-care (01) ==
LOC: ED 19:56 → OB 22:59
PROVIDERS: ADMIT Surgery; ATTEND Surgery
DX: N61.1 Abscess of the breast and nipple (principal); G89.18 Other acute postprocedural pain; C50.211 Malignant neoplasm of upper-inner quadrant of right female breast; I10 Essential (primary) hypertension; M19.90 Unspecified osteoarthritis, unspecified site; Z79.899 Other long term (current) drug therapy; Z98.890 Other specified postprocedural states
CPT/HCPCS: 19020; 36415; 82565; 85025; 87075; 87116; 96365; 96366; 96372; 99284; G0378; J0330; J1170; J1650; J2370; J2405; J2704; J2765; J3370; J7050; 85007